=== PATIENT | male | born 1975 | race American Indian/Alaskan Native ===

== ENCOUNTER 2017-02-11 06:08 | Day surgery (SDC) | payer BC ==
[2017-01-28 10:47] VITALS: BMI 33.3
[2017-02-11] MEDS ORDERED: Bupivacaine-Epi 0.25%-1:200,000 PF Inj ONE (07:41)
[2017-02-11] MEDS ORDERED: Sodium Chloride 0.9% 40 ML IV ONE (07:41)
[2017-02-11] MEDS ORDERED: Midazolam 2 MG/2 ML VIAL ONE ×2 (07:54→08:52)
[2017-02-11] MEDS ORDERED: Propofol 10 mg/ml Inj (20 ML) ONE (07:54)
[2017-02-11] MEDS ORDERED: Rocuronium 10 mg/ml (5 ml) ONE (08:06)
[2017-02-11] MEDS ORDERED: Neostigmine Methylsulfate 3mg/3ml Syringe IV ONE (08:53)
[2017-02-11] MEDS ORDERED: Glycopyrrolate 0.2 mg/ml (2ml vial) ONE (08:53)
[2017-02-11] MEDS ORDERED: Lactated Ringer's 1,000 ML IV SCH (09:01)
[2017-02-11] MEDS ORDERED: Morphine 2 mg/ml ISec IVP PRN (09:01)
--- NOTE | 2017-02-11 09:57 | PCM.SURG1 ---
Surgeon's Initial Post Op Note - Surgeon's Notes Surgeon: Dr. Masoud Wheat Label Operator: Dr. Fitzgerald PGY-2, Dr. Gay PGY-1 Type of Anesthesia: General LMA Anesthesia Administered By: Dr. Dillon Pre-Operative Diagnosis: right ankle arthritis and synovitis Operative Findings: see dictation. 4-0 nylon Post-Operative Diagnosis: same as preop Operation Performed: right ankle arthroscopy Specimen/Specimens Removed: loose body (meniscoid body) Estimated Blood Loss: EBL {In ML}: 2 Blood Products Given: N/A Drains Used: No Drains Post-Op Condition: Good Date of Surgery/Procedure: 02/11/17 Time of Surgery/Procedure: 09:57
[2017-02-11] MEDS ORDERED: Oxycodone/Acetaminophen 5/325 mg Tab PO PRN ×2 (09:59)
[2017-02-11] MEDS ORDERED: Morphine 2 mg/ml ISec ONE (10:54)
[2017-02-11 11:48] VITALS: BP 137/90; PULSE 61; RESP 18; TEMP 97.5; O2SAT 97
--- NOTE | 2017-03-04 03:41 | OP ---
PROCEDURE DATE: 02/11/2017 SURGEON: Masoud Wheat MD ASSISTANTS: Dr. Fitzgerald, PGY2 and Dr. Gay, PGY1. PREOPERATIVE DIAGNOSIS: Chronic synovitis of the right ankle. POSTOPERATIVE DIAGNOSIS: Chronic synovitis of the right ankle. PROCEDURE: Diagnostic and therapeutic right ankle arthroscopy. INDICATIONS: The patient had a longstanding pain in his right ankle, but did not resolve with conservative therapies. He had been seen in the emergency room with a right ankle in 07/2016. He works a very physical job, and he works in his feet. He is a rather large male patient. He came to me after 2 weeks of ER treatment with pain in the right ankle and swelling. He had multiple studies including x-rays and CT scan done of the ankle, which showed no findings except for a small chip in the medial side of the tibial malleolus. He had not responded to physical therapies, Cam walking boots. He had had 3 most recently of disability, off from work and he was wearing 12 to 15 hours a day Swede-O lace-up ankle brace on the side and he reports no lasting improvement in the pain which tended to focus over the anterior and anterolateral aspect of the right ankle joint. TECHNIQUE: The patient was brought to the [facility] and placed supine on the operating table. He was inducted and then given general anesthetic with muscle relaxation. A bolster was then supplied and attached to the table to hold the right thigh in flexion and the right knee was allowed to bend approximately 45 to 60 degrees over the distal aspect of the table. The right leg was then prepped from the toes up to the proximal calf and draped in the usual sterile manner. A right thigh tourniquet had been applied before drape and prep and an Esmarch tourniquet was now applied to the right foot, ankle, and leg upto the knee, maintaining the elevation on the right leg for 3 minutes. At this time, the right thigh tourniquet was inflated to 325 mmHg, and the foot was positioned down with the heel on the table and the ankle in plantarflexion. The right ankle was then insufflated with 10 mL of 0.25% Marcaine mixed with an additional 10 mL of saline for irrigation, and following insufflation, the first portal was made on the anteromedial side of the ankle joint between the superficial femoral vein and tibialis anterior tendon. A 1.5 cm stab incision was placed through the skin, no significant undermining was performed. A blunt reflection with a curved mosquito down to the insufflated joint capsule and then a blunt trocar was utilized to appropriately place the portal into the joint. With the cannula in place, the trocar was replaced with the 2.7 Noel ankle scope and the arthroscopy began. The scope was brought through the anterior aspect of the joints towards the lateral side to eliminate from inside the vessels over the lateral portal site, and using the #15 blade, another 1.5 cm incision was placed between the lateral extensor digitorum tendon and the superficial lateral dorsal cutaneous nerve. With that incision placed carefully and bluntly dissected down to the joint capsule, the trocar and cannula were utilized for placing the lateral portal. Once the lateral portal was placed, the trocar was replaced and the joint was visualized. The visualization reveals significant synovitis over the lateral and anterolateral anterior shoulder area, the right ankle. The 3.5 full radius shaver was inserted and via oscillating mode, the synovitis was debrided from the lateral and anterolateral aspect of the joint. After sometime as the ankle was distracted and plantarflexed and accessed to the lateral gutter and lateral shoulder were not optimized, the scope was retracted slightly and the anterior aspect of the joint, tibial plafond, and talar dome was appreciated as well as the medical aspect medical shoulder of the joint, medial gutter and there was significantly less synovitis located in this area. Minimal debridement had been performed on this side. At this point in time, the 2.7 mm scope was re-introduced through the lateral portal and the shaver through the medial portal, and this allowed visualization of the more posterior aspects of the anterior gutter and anterior shoulder on the lateral side. It was noted at this time that right off the lateral shoulder, there appeared to be a fairly large meniscoid body that would float out and away from the lateral gutter shoulder margin about midway back towards the posterior aspect. A grasper was introduced from the medial side and the piece was able to be grasped and with gentle traction freed from its synovitis and transferred to the fibular margins and that piece of specimen was sent off to pathology. This was a classic meniscoid body emanating from the lateral shoulder and the fibular articular surface which was freely movable and may have been his primary source of sympomatic pain in that location. With the specimen sent to pathology, the ankle was evaluated one more time from lateral to medial side; now with the scope entered on the lateral portal, we were able to see back across the top of the talus and the midportion of the tibial plafond. There seemed to be some ridges located in the articular surface of the tibial plafond just over the lateral shoulder. A right angled blunt probe was introduced from the medial side and under direct visualization, it was noted that these 2 fissures, although appeared to be fairly firmly attached not undermined, but the probe did slip in between the fissure nodules. They appeared to encompass about 5 to 7 mm from lateral to midportion of the tibial plafond from the anterior and middle aspects parallel to each other. It was elected at this point in time that since there was no denuding of the cartilaginous surface and the meniscoid body was felt to be the prominent cause for his recurrent gait pain in the lateral shoulder that we would not do significant articular surface repair at this time. The scope products and the probes were all removed from the joint. The joint was then manipulated and compressed to allow for drainage of the and saline back out of the joint through the 2 portals. Once the sufficient compression had been performed, the 2 portals were closed with a single 4-0 nylon simple suture on each portal and then the wound was dressed with a Betadine-soaked Adaptic and dry sterile fluff dressing. The right leg was then placed in a posterior splint maintaining the ankle at 90 degrees for the first 5 to 6 days postoperatively. At this time, the right thigh tourniquet was released. The total tourniquet time was approximately 1 hour and 20 minutes and normal color and to all the digits of the right foot. The patient was subsequently aroused from his general anesthetic and successfully transferred from the operating table to the stretcher and transferred to the PACU where he was alert and oriented with vital signs stable and in good condition. Dressing was dry and intact. The patient was given no prescriptions for pain, as he had existing prescriptions of pain medication already at home from several different sources, and he was told to ambulate with crutches non-weightbearing on the right ankle for 72 hours, and he will follow up in 5 days in our office for splint removal and movement into a Cam walking boot and start physical therapy aggressively. Masoud Wheat DPM
== END 2017-02-11 12:30 | disposition home or self-care (01) ==
LOC: SDS 06:08
PROVIDERS: ATTEND Podiatrist
DX: M65.871 Other synovitis and tenosynovitis, right ankle and foot (principal); M19.071 Primary osteoarthritis, right ankle and foot
CPT/HCPCS: 29897; 88304; J0690; J2001; J2250; J2270; J2405; J2704; J2710; J3010; J7120 ×2

== ENCOUNTER 2017-10-24 12:16 | Emergency (ER) | payer BC, MEDICAID ==
[2017-10-24 12:17] VITALS: BMI 33.3
[2017-10-24 12:27] VITALS: RESP 18
[2017-10-24] MEDS ORDERED: Sodium Chloride 0.9% 1,000 ML IV STA (12:58)
[2017-10-24 13:22] LABS: BASO # 0.03 K/mm3 (0.0-2.0); BASO % 0.4 % (0.0-3.0); EOS # 0.1 (0.0-0.7); EOS % 1.1 % (1.5-5.0); GRAN # 5.2 (1.4-6.5); GRAN % 63.7 % (50.0-68.0); HEMOGLOBIN 14.7 g/dL (14.0-18.0); LYMPH # 2.2 (1.2-3.4); LYMPH % 27.3 % (22.0-35.0); MEAN CELL VOLUME 78.4 fl (80.0-105.0); MEAN CORPUSCULAR HEMOGLOBIN 26.7 pg (25.0-35.0); MEAN CORPUSCULAR HGB CONC 34.1 g/dl (31.0-37.0); MEAN PLATELET VOLUME 9.7 fl (7.0-11.0); MONO # 0.6 (0.1-0.6); MONO % 7.5 % (1.0-6.0); RBC 5.5 10^6/uL (3.5-6.1); RED CELL DISTRIBUTION WIDTH 14.3 % (11.5-14.5); WHITE BLOOD COUNT 8.2 10^3/ul (4.5-11.0)
[2017-10-24 13:26] LABS: ACETAMINOPHEN < 10.0 ug/ml (10.0-20.0); GFR AFRICAN-AMERICAN > 60; GFR NON-AFRICAN AMERICAN > 60; SALICYLATE < 1 mg/dL (2.0-20.0)
[2017-10-24 13:30] LABS: ALBUMIN 4.5 g/dL (3.0-4.8); ALT/SGPT 46 U/L (7-56); AST/SGOT 37 U/L (17-59); BLOOD UREA NITROGEN 14 mg/dL (7-21); CALCIUM 9.7 mg/dL (8.4-10.5)
[2017-10-24 13:31] LABS: ALB/GLOB RATIO 1.4 (1.1-1.8)
--- NOTE | 2017-10-24 14:01 | ED PDOC ---
Arrival/HPI - General Historian: Patient - History of Present Illness Time/Duration: Prior to Arrival Symptom Onset: Gradual Symptom Course: Improving <Sergio Baron - Last Filed: 10/24/17 15:35> <SelinBraulioArpitlucie - Last Filed: 10/24/17 22:23> - General Chief Complaint: Palpitations Time Seen by Provider: 10/24/17 12:25 - History of Present Illness Narrative History of Present Illness (Text): 10/24/17 13:58 Patient is a 42 M with a past medical history significant for chronic back pain and opioid abuse presenting with complaints of withdrawals which consist of decreased appetitie, anxiety, and nervousness which has been going on for two days now. Patient states this has been occurring [facility]. Admits to headache. Denies fevers, chills, cough, abdominal pain, nausea, vomiting, diarrhea, chest pain, shortness of breath. PMD:Dr. Castellon Pain Management doctor: Dr. Hossein Phillips Medications: originally took 30 mg oxycodone QID and 10 percocet BID daily for 6 years. Last medications taken today were clonidine and valium Surgical history: Gastric sleeve and b/l ankle surgery Social history: denies smoking, drinking, past opioid abuse (Sergio Baron) Past Medical History - Provider Review Nursing Documentation Reviewed: Yes - Infectious Disease Hx of Infectious Diseases: None - Cardiac Hx Cardiac Disorders: No - Pulmonary Hx Respiratory Disorders: No - Neurological Hx Neurological Disorder: No - HEENT Hx HEENT Disorder: No - Renal Hx Renal Disorder: No - Endocrine/Metabolic Hx Endocrine Disorders: No - Hematological/Oncological Hx Blood Transfusions: No - Integumentary Hx Dermatological Disorder: No - Musculoskeletal/Rheumatological Hx Musculoskeletal Disorders: Yes - Gastrointestinal Hx Gastrointestinal Disorders: Yes Other/Comment: gastric sleeve. GI bleeding problem - Genitourinary/Gynecological Hx Genitourinary Disorders: No - Psychiatric Hx Anxiety: Yes Hx Substance Use: No - Surgical History Other/Comment: gastric sleeve - Anesthesia Hx Anesthesia Reactions: No Hx Malignant Hyperthermia: No - Suicidal Assessment Feels Threatened In Home Enviroment: No <Sergio Baron - Last Filed: 10/24/17 15:35> Family/Social History - Physician Review Nursing Documentation Reviewed: Yes Family/Social History: Other (non-contributory) Smoking Status: Light Smoker < 10 Cigarettes Daily Hx Alcohol Use: No Hx Substance Use: No <Sergio Baron - Last Filed: 10/24/17 15:35> Allergies/Home Meds <Sergio Baron - Last Filed: 10/24/17 15:35> <Tone Smallwood - Last Filed: 10/24/17 22:23> Allergies/Adverse Reactions: Allergies No Known Allergies Allergy (Verified 10/24/17 12:28) Review of Systems - Review of Systems Constitutional: Fatigue. absent: Weight Change, Fevers Eyes: absent: Vision Changes ENT: absent: Hearing Changes Respiratory: absent: SOB, Cough Cardiovascular: absent: Chest Pain Gastrointestinal: absent: Diarrhea, Nausea, Vomiting Genitourinary Male: absent: Dysuria Musculoskeletal: Arthralgias, Back Pain Skin: absent: Rash Neurological: Headache. absent: Dizziness Endocrine: Normal Hemo/Lymphatic: Normal Psychiatric: Anxiety <Sergio Baron - Last Filed: 10/24/17 15:35> Physical Exam Vital Signs Reviewed: Yes Temperature: Afebrile Blood Pressure: Normal Pulse: Regular Respiratory Rate: Normal Appearance: Positive for: Well-Appearing, Non-Toxic, Comfortable Pain Distress: None Mental Status: Positive for: Alert and Oriented X 3 - Systems Exam Head: Present: Atraumatic, Normocephalic Pupils: Present: PERRL Extroacular Muscles: Present: EOMI Conjunctiva: Present: Normal Mouth: Present: Moist Mucous Membranes Neck: Present: Normal Range of Motion Respiratory/Chest: Present: Clear to Auscultation. No: Wheezes, Rhonchi Cardiovascular: Present: Regular Rate and Rhythm, Normal S1, S2 Abdomen: Present: Normal Bowel Sounds. No: Tenderness, Distention Upper Extremity: Present: Normal Inspection. No: Edema Lower Extremity: Present: Normal Inspection. No: Edema Neurological: Present: GCS=15, CN II-XII Intact, Speech Normal Skin: Present: Warm, Normal Color Psychiatric: Present: Alert, Oriented x 3, Normal Insight, Normal Concentration <Sergio Baron - Last Filed: 10/24/17 15:35> Vital Signs Temp Pulse Resp BP Pulse Ox 10/24/17 15:59 82 18 128/70 99 10/24/17 14:17 57 L 18 139/92 H 98 10/24/17 12:30 98.5 F 72 18 134/70 98 10/24/17 12:22 167 F H 18 136/82 98 Medical Decision Making Re-evaluation Time: 16:22 Reassessment Condition: Re-examined - Lab Interpretations I have reviewed the lab results: Yes Interpretation: All labs normal <Sergio Baron - Last Filed: 10/24/17 15:35> <Tone Smallwood - Last Filed: 10/24/17 22:23> ED Course and Treatment: 10/24/17 16:21 Tylenol given for headache, librium for symptoms Patient discharged with clonidine which was verified with patient's pharmacy Lab values revealed no abnormalities, Tox screen neg for drugs or alcohol ( Sergio Baron) - Lab Interpretations Lab Results: 10/24/17 13:00 10/24/17 13:00 Lab Results 10/24/17 14:30: Urine Color Yellow, Urine Appearance Sl cloudy, Urine pH 7.5, Ur Specific [place] 1.015, Urine Protein Trace H, Urine Glucose (UA) Negative, Urine Ketones 15 H, Urine Blood Negative, Urine Nitrate Negative, Urine Bilirubin Negative, Urine Urobilinogen 0.2, Ur Leukocyte Esterase Trace H, Urine RBC 0 - 2, Urine WBC 5 - 10, Ur Epithelial Cells 0 - 2, Amorphous Sediment Moderate, Urine Bacteria Many, Coarse Granular Casts Trace H, Urine Other Uyeast 10/24/17 13:40: Urine Opiates Screen Negative, Urine Methadone Screen Negative, Ur Barbiturates Screen Negative, Ur Phencyclidine Scrn Negative, Ur Amphetamines Screen Negative, U Benzodiazepines Scrn Positive, U Oth Cocaine Metabols Negative, U Cannabinoids Screen Negative 10/24/17 13:00: Alcohol, Quantitative < 10 10/24/17 13:00: Salicylates < 1 L, Acetaminophen < 10.0 L 10/24/17 13:00: Sodium 144, Potassium 4.2, Chloride 106, Carbon Dioxide 24, Anion Gap 17, BUN 14, Creatinine 1.1, Est GFR ( Amer) > 60, Est GFR (Non- Af Amer) > 60, Random Glucose 88, Calcium 9.7, Magnesium 2.3 H, Total Bilirubin 0.5, AST 37, ALT 46, Alkaline Phosphatase 82, Total Protein 7.8, Albumin 4.5, Globulin 3.3, Albumin/Globulin Ratio 1.4 10/24/17 13:00: WBC 8.2 D, RBC 5.50, Hgb 14.7, Hct 43.1, MCV 78.4 L, MCH 26.7, MCHC 34.1, RDW 14.3, Plt Count 347, MPV 9.7, Gran % 63.7, Lymph % (Auto) 27.3, Davis % (Auto) 7.5 H, Eos % (Auto) 1.1 L, Baso % (Auto) 0.4, Gran # 5.20, Lymph # (Auto) 2.2, Davis # (Auto) 0.6, Eos # (Auto) 0.1, Baso # (Auto) 0.03 - Medication Orders Current Medication Orders: Discontinued Medications Acetaminophen (Tylenol 325mg Tab) 650 mg PO STAT STA Stop: 10/24/17 13:58 Last Admin: 10/24/17 14:20 Dose: 650 mg Chlordiazepoxide (Librium) 50 mg PO STAT STA PRN Reason: Protocol Stop: 10/24/17 14:20 Last Admin: 10/24/17 14:25 Dose: 50 mg Famotidine (Pepcid) 20 mg IVP STAT STA Stop: 10/24/17 13:21 Last Admin: 10/24/17 13:33 Dose: 20 mg IVP Administration Document 10/24/17 13:33 EWO (Rec: 10/24/17 13:33 [facility] [id number]) Charges for Administration # of IVP Administrations 1 Sodium Chloride (Sodium Chloride 0.9%) 1,000 mls @ 1,000 mls/hr IV .Q1H STA Stop: 10/24/17 13:57 Last Admin: 10/24/17 13:10 Dose: 1,000 mls/hr eMAR Start Stop Document 10/24/17 13:10 EWO (Rec: 10/24/17 13:10 [facility] [id number]) Intravenous Solution Start Date 10/24/17 Start Time 13:10 End Date 10/24/17 End time 14:10 Total Infusion Time 60 - PA / [employer] / Resident Statement / has reviewed & agrees with the documentation as recorded. <Tone Smallwood - Last Filed: 10/24/17 22:23> Disposition/Present on Arrival - Present on Arrival Any Indicators Present on Arrival: No History of DVT/PE: No History of Uncontrolled Diabetes: No Urinary Catheter: No History of Decub. Ulcer: No History Surgical Site Infection Following: None - Disposition Have Diagnosis and Disposition been Completed?: Yes Disposition Time: 15:35 Patient Plan: Discharge <Sergio Baron - Last Filed: 10/24/17 15:35> <Tone Smallwood - Last Filed: 10/24/17 22:23> - Disposition Diagnosis: Benzodiazepine withdrawal without complication, Loss of appetite, Opioid withdrawal Disposition: HOME/ ROUTINE Condition: GOOD Additional Instructions: Mr. Medina, thank you for letting us take care of you today. Your provider was Dr. Smallwood. The emergency medical care you received today was directed at your acute symptoms. If you were prescribed any medication, please fill it and take as directed. It may take several days for your symptoms to resolve. Return to the Emergency Department if your symptoms worsen, do not improve, or if you have any other problems. Please contact your doctor or call one of the physicians/clinics you have been referred to that are listed on the Patient Visit Information form that is included in your discharge packet. Bring any paperwork you were given at discharge with you along with any medications you are taking to your follow up visit. Our treatment cannot replace ongoing medical care by a primary care provider (PCP) outside of the emergency department. Thank you for allowing the [facility] team to be part of your care today. If you had an X-Ray or CT scan: A Radiologist will review the ED reading if any change in treatment is needed we will contact you. If you had a blood, urine, or wound culture: It will take several days for the results, if any change in treatment is needed we will contact you. If you had an STI test: It will take 48 hours for the results. Please call after 1 week if you have not heard back. Prescriptions: chlordiazePOXIDE [Chlordiazepoxide HCl] 25 mg PO Q6 PRN #24 cap PRN Reason: Anxiety cloNIDine [Catapres] 0.1 mg PO BID #60 tab Forms: [employer] ([place])
[2017-10-24 14:43] LABS: PH,URINE 7.5 (4.7-8.0); URINE APPEARANCE SL CLOUDY (CLEAR); URINE BILIRUBIN NEGATIVE (NEGATIVE); URINE BLOOD NEGATIVE (NEGATIVE); URINE COLOR YELLOW (YELLOW); URINE GLUCOSE (UA) NEGATIVE (NEGATIVE); URINE LEUKOCYTE ESTERASE TRACE Leu/uL (NEGATIVE); URINE PROTEIN TRACE mg/dL (<30 mg/dL); URINE UROBILINOGEN 0.2 E.U./dL (<1 E.U./dL)
[2017-10-24 14:47] LABS: URINE EPITHELIAL CELLS 0 - 2 /hpf (0-5); URINE RBC 0 - 2 /hpf (0-2)
[2017-10-24 14:48] LABS: URINE BACTERIA MANY (NEG); URINE COARSE GRANULAR CAST TRACE /hpf (0-2)
[2017-10-24 14:49] LABS: URINE AMORPHOUS SEDIMENT MODERATE
[2017-10-24 15:01] LABS: OPIATES, UR NEGATIVE (NEGATIVE)
[2017-10-24 15:04] LABS: BARBITURATES, UR NEGATIVE (NEGATIVE); BENZODIAZEPINES, UR POSITIVE (NEGATIVE); PHENCYCLIDINE, UR NEGATIVE (NEGATIVE)
[2017-10-24 15:31] VITALS: TEMP 98.5
[2017-10-24 16:00] VITALS: BP 128/70; PULSE 82; O2SAT 99
--- NOTE | 2017-10-25 12:59 | CARD ---
APPROVED REPORT EKG Measurement Heart [id number] <Conclusion> Normal sinus rhythm Normal ECG
== END 2017-10-24 15:59 | disposition home or self-care (01) ==
LOC: ED 12:16
DX: F13.239 Sedative, hypnotic or anxiolytic dependence with withdrawal, unspecified (principal); R63.0 Anorexia; F11.23 Opioid dependence with withdrawal
CPT/HCPCS: 80053; 80320; 80324; 80329; 80345; 80346; 80349; 80353; 80358; 80361; 81001; 83735; 83992; 85025; 87086; 87206; 93005; 96361; 96374; 99283; J7040

== ENCOUNTER 2017-11-05 18:46 | Emergency (ER) | payer SELFPAY ==
[2017-11-05 18:49] VITALS: BMI 34.0
[2017-11-05 19:00] VITALS: TEMP 98.3
--- NOTE | 2017-11-05 20:12 | ED PDOC ---
Arrival/HPI - General Chief Complaint: Medical Clearance Time Seen by Provider: 11/05/17 20:05 Historian: Patient - History of Present Illness Narrative History of Present Illness (Text): 11/05/17 20:09 Pt is a 42 yr old with h/o substance abuse and a previous slip and fall incident at work who presents today for medical clearance of the left hip. Pt states he never received clearance for his left hip last visit to the ED and currently has no complaints of the left hip but requires a letter of clearance for work. Denies recent trauma, gait changes, change in motor or sensation of extremities. Time/Duration: Prior to Arrival Symptom Onset: Other Symptom Course: Resolved Quality: Unable to Describe Severity Level: 1 Context: Work Past Medical History - Provider Review Nursing Documentation Reviewed: Yes - Travel History Have you recently traveled outside [place] w/in the past 3 mons?: No - Infectious Disease Hx of Infectious Diseases: None - Cardiac Hx Cardiac Disorders: No - Pulmonary Hx Respiratory Disorders: No - Neurological Hx Neurological Disorder: No - HEENT Hx HEENT Disorder: No - Renal Hx Renal Disorder: No - Endocrine/Metabolic Hx Endocrine Disorders: No - Hematological/Oncological Hx Blood Transfusions: No - Integumentary Hx Dermatological Disorder: No - Musculoskeletal/Rheumatological Hx Musculoskeletal Disorders: Yes - Gastrointestinal Hx Gastrointestinal Disorders: Yes Other/Comment: gastric sleeve. GI bleeding problem - Genitourinary/Gynecological Hx Genitourinary Disorders: No - Psychiatric Hx Anxiety: Yes Hx Substance Use: No - Surgical History Other/Comment: gastric sleeve - Anesthesia Hx Anesthesia Reactions: No Hx Malignant Hyperthermia: No - Suicidal Assessment Feels Threatened In Home Enviroment: No Family/Social History - Physician Review Nursing Documentation Reviewed: Yes Family/Social History: Unknown Family HX Smoking Status: Light Smoker < 10 Cigarettes Daily Hx Alcohol Use: No Hx Substance Use: No Allergies/Home Meds Allergies/Adverse Reactions: Allergies No Known Allergies Allergy (Verified 10/24/17 12:28) Review of Systems - Review of Systems Constitutional: Normal Eyes: Normal ENT: Normal Respiratory: Normal Cardiovascular: Normal Gastrointestinal: Normal Genitourinary Male: Normal Musculoskeletal: Normal Skin: Normal Neurological: Normal Endocrine: Normal Hemo/Lymphatic: Normal Psychiatric: Normal Physical Exam Vital Signs Reviewed: Yes Vital Signs Temp Pulse Resp BP Pulse Ox 11/05/17 18:59 98.3 F 83 18 144/92 H 97 Temperature: Afebrile Blood Pressure: Normal Pulse: Regular Respiratory Rate: Normal Appearance: Positive for: Well-Appearing, Non-Toxic, Comfortable Pain Distress: None Mental Status: Positive for: Alert and Oriented X 3 - Systems Exam Head: Present: Atraumatic, Normocephalic Neck: Present: Normal Range of Motion Respiratory/Chest: Present: Clear to Auscultation, Good Air Exchange. No: Respiratory Distress, Accessory Muscle Use Cardiovascular: Present: Regular Rate and Rhythm, Normal S1, S2. No: Murmurs Abdomen: No: Tenderness, Distention, Peritoneal Signs Back: Present: Normal Inspection Upper Extremity: Present: Normal Inspection, Normal ROM, NORMAL PULSES, Neurovascularly Intact, Capillary Refill < 2s. No: Cyanosis, Edema Lower Extremity: Present: Normal Inspection, NORMAL PULSES, Normal ROM, Capillary Refill < 2 s. No: Edema, CALF TENDERNESS Neurological: Present: GCS=15, CN II-XII Intact, Speech Normal, Motor Func Grossly Intact, Normal Sensory Function, Norm Deep Tendon Reflexes, Gait Normal , Normal 2Pt Descrimination Skin: Present: Warm, Dry, Normal Color. No: Rashes Psychiatric: Present: Alert, Oriented x 3, Normal Insight, Normal Concentration Medical Decision Making ED Course and Treatment: 11/05/17 20:16 Impression Pt is a 42 yr old with h/o substance abuse and a previous slip and fall incident at work who presents today for medical clearance of the left hip. One exam, Bilateral full active and passive ROM of the hip joint, SILT and motor function 5/5 full No other findings on exam Plan Assess and dispo with work clearance 11/05/17 20:55 Pt received discharge paper that indicates clearance to work Disposition/Present on Arrival - Present on Arrival Any Indicators Present on Arrival: Yes History of DVT/PE: No History of Uncontrolled Diabetes: No Urinary Catheter: No History of Decub. Ulcer: No History Surgical Site Infection Following: None - Disposition Have Diagnosis and Disposition been Completed?: Yes Diagnosis: Return to work exam, Examination and observation following work accident Disposition: HOME/ ROUTINE Disposition Time: 20:22 Patient Plan: Discharge Patient Problems: Current Active Problems Problem Status Onset Return to work exam Acute Examination and observation following work accident Acute Condition: STABLE Additional Instructions: Ponce Medina has been assessed for a previous left hip injury that occurred at his work place October 24, 2017. The left hip has good range of motion and motor strength with no deficits and gait is normal. This patient is clear to continue working. Referrals: PCP,NO [Primary Care Provider] - Follow up with primary Forms: [employer] ([place]ian), WORK NOTE
[2017-11-05 23:08] VITALS: BP 138/88; PULSE 80; RESP 16; O2SAT 99
== END 2017-11-05 20:30 | disposition home or self-care (01) ==
LOC: ED 18:46
DX: Z04.2 Encounter for examination and observation following work accident (principal)

== ENCOUNTER 2017-11-20 11:32 | Emergency (ER) | payer OTHER ==
--- NOTE | 2017-11-20 11:48 | ED PDOC ---
Arrival/HPI - General Time Seen by Provider: 11/20/17 11:43 Historian: Patient - History of Present Illness Narrative History of Present Illness (Text): 11/20/17 11:44 42 y/o male, pmh including chronic lower back pain, nkda, c/o lower back pain and feeling depress/anxiety. Pt. stated that he has lower back pain for years, xray was negative couple months ago, no new injury or fall, pain and characteristic of pain have not changed, and seeing pain management which been giving him percocet but he didn't take it today. Pt. also stated that he has chronic anxiety and depression, would like to be evaluated as well, no facial twitching, no tremors, no palpitation, no nausea or vomiting, no URI symptoms, no numbness or tingling, no homocidal or suicidal ideation, no auditory or visual hallucination, no rash, no other medical or psychological complaints. Past Medical History - Provider Review Nursing Documentation Reviewed: Yes - Infectious Disease Hx of Infectious Diseases: None - Cardiac Hx Cardiac Disorders: No - Pulmonary Hx Respiratory Disorders: No - Neurological Hx Neurological Disorder: No - HEENT Hx HEENT Disorder: No - Renal Hx Renal Disorder: No - Endocrine/Metabolic Hx Endocrine Disorders: No - Hematological/Oncological Hx Blood Transfusions: No - Integumentary Hx Dermatological Disorder: No - Musculoskeletal/Rheumatological Hx Musculoskeletal Disorders: Yes - Gastrointestinal Hx Gastrointestinal Disorders: Yes Other/Comment: gastric sleeve. GI bleeding problem - Genitourinary/Gynecological Hx Genitourinary Disorders: No - Psychiatric Hx Anxiety: Yes Hx Substance Use: No - Surgical History Other/Comment: gastric sleeve - Anesthesia Hx Anesthesia Reactions: No Hx Malignant Hyperthermia: No - Suicidal Assessment Feels Threatened In Home Enviroment: No Family/Social History - Physician Review Nursing Documentation Reviewed: Yes Family/Social History: Unknown Family HX Smoking Status: Light Smoker < 10 Cigarettes Daily Hx Alcohol Use: No Hx Substance Use: No Allergies/Home Meds Allergies/Adverse Reactions: Allergies No Known Allergies Allergy (Verified 10/24/17 12:28) Review of Systems - Review of Systems Constitutional: absent: Fatigue, Fevers Eyes: absent: Vision Changes ENT: absent: Hearing Changes Respiratory: absent: SOB, Cough Cardiovascular: absent: Chest Pain Gastrointestinal: absent: Abdominal Pain, Nausea, Vomiting Musculoskeletal: Back Pain. absent: Arthralgias, Neck Pain, Joint Swelling, Myalgias Skin: absent: Rash, Pruritis Psychiatric: Anxiety, Depression. absent: Suicidal Ideation Physical Exam Vital Signs Reviewed: Yes Vital Signs Temp Pulse Resp BP Pulse Ox 11/20/17 11:55 97.6 F 64 17 133/81 98 Temperature: Afebrile Blood Pressure: Normal Pulse: Regular Respiratory Rate: Normal Appearance: Positive for: Well-Appearing, Non-Toxic, Comfortable Pain Distress: None Mental Status: Positive for: Alert and Oriented X 3 - Systems Exam Head: Present: Atraumatic, Normocephalic Pupils: Present: PERRL. No: Pinpoint Extroacular Muscles: Present: EOMI. No: Entrapment Conjunctiva: Present: Normal. No: Icteric Ears: Present: NORMAL TM, Normal Canal Mouth: Present: Moist Mucous Membranes Neck: Present: Normal Range of Motion Respiratory/Chest: Present: Clear to Auscultation, Good Air Exchange. No: Respiratory Distress, Accessory Muscle Use Cardiovascular: Present: Regular Rate and Rhythm, Normal S1, S2. No: Murmurs Abdomen: No: Tenderness, Distention, Peritoneal Signs Back: Present: Normal Inspection, Other (LS spine: no midline tenderness or step off, no saddling gait, FROM without limitation, sensation intact, motor 5/ 5. ). No: CVA Tenderness, Midline Tenderness, Paraspinal Tenderness, Pain with Leg Raise, Decubitus Ulcer Upper Extremity: Present: Normal Inspection, NORMAL PULSES, Neurovascularly Intact, Capillary Refill < 2s. No: Cyanosis, Edema, Deformity Lower Extremity: Present: Normal Inspection, Normal ROM, Neurovascularly Intact , Capillary Refill < 2 s. No: Edema, Tenderness, Swelling, Deformity Neurological: Present: GCS=15, CN II-XII Intact, Speech Normal, Motor Func Grossly Intact, Gait Normal, Memory Normal, Other (no facial twitching, no tremors, no signs of withdrawals) Skin: Present: Warm, Dry, Normal Color. No: Rashes Psychiatric: Present: Alert, Oriented x 3, Normal Insight, Normal Concentration , Normal Affect, Normal Mood, Anxious, Depressed Mood. No: Agitated, Suicidal Ideation, Homicidal Ideation, Hallucinations, Intoxicated, Lethargic Medical Decision Making ED Course and Treatment: 11/20/17 11:48 -labs/ua/uds -Toradol IM/valium -PES paged -Observe and reassess 11/20/17 13:40 -Pt. feels much better now, asymptomatic -Pt. refused to wait for remaining labs and want the labs to be cancelled, request to be discharged, stated that he is not withdrawing with no homicidal/ suicidal ideation, no auditory or visual hallucinations. Pt. refused psychiatric evaluation. -Discharge home with motrin, flexeril, bed rest, follow up with your own pmd and pain management within 2 days, return to the ER for any new or worsening signs or symptoms. - Lab Interpretations Lab Results: 11/20/17 12:44 Lab Results 11/20/17 13:23: Urine Color Yellow, Urine Appearance Sl cloudy, Urine pH 6.0, Ur Specific [place] >= 1.030, Urine Protein Trace H, Urine Glucose (UA) Negative , Urine Ketones Trace H, Urine Blood Negative, Urine Nitrate Negative, Urine Bilirubin Small H, Urine Urobilinogen 0.2, Ur Leukocyte Esterase Negative, Urine RBC Pending, Urine WBC Pending 11/20/17 12:44: WBC 7.8, RBC 5.74, Hgb 15.2, Hct 45.0, MCV 78.4 L, MCH 26.5, MCHC 33.8, RDW 14.5, Plt Count 306, MPV 9.5, Gran % 66.4, Lymph % (Auto) 26.3, [place] % (Auto) 6.4 H, Eos % (Auto) 0.6 L, Baso % (Auto) 0.3, Gran # 5.19, Lymph # (Auto) 2.1, [place] # (Auto) 0.5, Eos # (Auto) 0.1, Baso # (Auto) 0.02 - Medication Orders Current Medication Orders: Discontinued Medications Diazepam (Valium) 5 mg PO ONCE ONE PRN Reason: Protocol Stop: 11/20/17 12:07 Last Admin: 11/20/17 13:02 Dose: 5 mg Ketorolac Tromethamine (Toradol) 60 mg IM STAT STA Stop: 11/20/17 12:07 Last Admin: 11/20/17 13:03 Dose: 60 mg MAR Pain Assessment Document 11/20/17 13:03 [facility] (Rec: 11/20/17 13:03 [facility] [id number]) Pain Reassessment Is this a pain reassessment? No Sleep Is patient sleeping during reassessment? No Presence of Pain Presence of Pain Yes Pain Scale Used Pain Scale Used Numeric Location Left, Right or Bilateral Bilateral Upper or Lower Lower Pain Location Body Site Back Description Intensity of Pain at present 10 IM Administration Charges Document 11/20/17 13:03 [facility] (Rec: 11/20/17 13:03 [facility] [id number]) Charges for Administration # of IM Administrations 1 - PA / ONLINE MARKETING COORDINATOR / Resident Statement MD/DO has reviewed & agrees with the documentation as recorded. Disposition/Present on Arrival - Present on Arrival Any Indicators Present on Arrival: No History of DVT/PE: No History of Uncontrolled Diabetes: No Urinary Catheter: No History of Decub. Ulcer: No History Surgical Site Infection Following: None - Disposition Have Diagnosis and Disposition been Completed?: Yes Diagnosis: Low back pain, Non-compliance Disposition: HOME/ ROUTINE Disposition Time: 13:42 Patient Plan: Discharge Condition: IMPROVED Additional Instructions: -Discharge home with motrin, flexeril, bed rest, follow up with your own pmd and pain management within 2 days, return to the ER for any new or worsening signs or symptoms. Prescriptions: Cyclobenzaprine [Cyclobenzaprine HCl] 10 mg PO TID PRN #21 tab PRN Reason: Other Ibuprofen [Motrin Tab] 600 mg PO QID PRN #30 tab PRN Reason: Other Referrals: Ángel Trevino MD [Staff Provider] - Follow up with primary [facility] [place] [Outside] - Follow up with primary [facility] [Outside] - Follow up with primary Forms: WORK NOTE
[2017-11-20 12:00] VITALS: BMI 26.8
[2017-11-20 12:51] LABS: BASO # 0.02 K/mm3 (0.0-2.0); BASO % 0.3 % (0.0-3.0); EOS # 0.1 (0.0-0.7); EOS % 0.6 % (1.5-5.0); GRAN # 5.19 (1.4-6.5); GRAN % 66.4 % (50.0-68.0); HEMOGLOBIN 15.2 g/dL (14.0-18.0); LYMPH # 2.1 (1.2-3.4); LYMPH % 26.3 % (22.0-35.0); MEAN CELL VOLUME 78.4 fl (80.0-105.0); MEAN CORPUSCULAR HEMOGLOBIN 26.5 pg (25.0-35.0); MEAN CORPUSCULAR HGB CONC 33.8 g/dl (31.0-37.0); MEAN PLATELET VOLUME 9.5 fl (7.0-11.0); MONO # 0.5 (0.1-0.6); MONO % 6.4 % (1.0-6.0); RBC 5.74 10^6/uL (3.5-6.1); RED CELL DISTRIBUTION WIDTH 14.5 % (11.5-14.5); WHITE BLOOD COUNT 7.8 10^3/ul (4.5-11.0)
[2017-11-20 13:29] LABS: URINE BILIRUBIN SMALL (NEGATIVE); URINE BLOOD NEGATIVE (NEGATIVE); URINE GLUCOSE (UA) NEGATIVE (NEGATIVE); URINE LEUKOCYTE ESTERASE NEGATIVE Leu/uL (NEGATIVE); URINE PROTEIN TRACE mg/dL (<30 mg/dL); URINE UROBILINOGEN 0.2 E.U./dL (<1 E.U./dL)
[2017-11-20 13:31] LABS: URINE APPEARANCE SL CLOUDY (CLEAR); URINE COLOR YELLOW (YELLOW)
[2017-11-20 13:39] LABS: URINE RBC NEGATIVE /hpf (0-2); URINE WBC 0 - 2 /hpf (0-6)
[2017-11-20 14:02] VITALS: BP 126/76; PULSE 70; RESP 18; TEMP 98; O2SAT 99
[2017-11-20 14:15] LABS: BLOOD UREA NITROGEN 13 mg/dL (7-21); GFR AFRICAN-AMERICAN > 60; GFR NON-AFRICAN AMERICAN > 60
[2017-11-20 14:16] LABS: ALB/GLOB RATIO 1.2 (1.1-1.8); ALBUMIN 4.1 g/dL (3.0-4.8); ALT/SGPT 48 U/L (7-56); AST/SGOT 29 U/L (17-59); CALCIUM 9.3 mg/dL (8.4-10.5)
== END 2017-11-20 14:09 | disposition home or self-care (01) ==
LOC: ED 11:32
DX: M54.5 Low back pain (principal); Z91.19 Patient's noncompliance with other medical treatment and regimen; F17.210 Nicotine dependence, cigarettes, uncomplicated
CPT/HCPCS: 80053; 81001; 82550; 83735; 85025; 96372; 99281; J1885

== ENCOUNTER 2018-02-10 14:22 | Emergency (ER) | payer MEDICAID, OTHER ==
[2018-02-10 14:57] VITALS: BMI 31.4
[2018-02-10] MEDS ORDERED: Sodium Chloride 0.9% 1,000 ML IV STA (15:30)
--- NOTE | 2018-02-10 15:42 | ED PDOC ---
Arrival/HPI - General Chief Complaint: Abdominal Pain Time Seen by Provider: 02/10/18 15:29 Historian: Patient - History of Present Illness Narrative History of Present Illness (Text): 43y/o M with h/o HTN, HCH, s/p gastric bypass surgery(2016), comes to ED with complaints of headache ongoing for about 1 week and abdominal discomfort for the past 24 hours. He states the headache was gradual in onset and has been intermittent in nature. He reports the headache improving after sleep and denies any associated photophobia, phonophobia, weakness, numbness, or dizziness. Patient states his abdominal pain is a burning sensation and reports bloating. He states his bowel movements have been normal in caliber and denies any bloody stools. He denies any fever, chills, nausea, vomiting, diarrhea, constipation, dysuria, hematuria or frequency. Patient also denies any recent travels or known sick contacts. PMD: Dr. Kim Time/Duration: 24 hours Symptom Onset: Gradual Symptom Course: Worsening Quality: Cramping, Gas Like Severity Level: Moderate Activities at Onset: Rest Context: Home Past Medical History - Provider Review Nursing Documentation Reviewed: Yes - Travel History Have you recently traveled outside [place] w/in the past 3 mons?: No - Infectious Disease Hx of Infectious Diseases: None - Cardiac Hx Cardiac Disorders: Yes Hx Hypertension: Yes - Pulmonary Hx Respiratory Disorders: No - Neurological Hx Neurological Disorder: No - HEENT Hx HEENT Disorder: No - Renal Hx Renal Disorder: No - Endocrine/Metabolic Hx Endocrine Disorders: No - Hematological/Oncological Hx Blood Transfusions: No - Integumentary Hx Dermatological Disorder: No - Musculoskeletal/Rheumatological Hx Musculoskeletal Disorders: Yes - Gastrointestinal Hx Gastrointestinal Disorders: Yes Other/Comment: gastric sleeve. GI bleeding problem - Genitourinary/Gynecological Hx Genitourinary Disorders: No - Psychiatric Hx Anxiety: Yes Hx Substance Use: No - Surgical History Other/Comment: gastric sleeve - Anesthesia Hx Anesthesia: Yes Hx Anesthesia Reactions: No Hx Malignant Hyperthermia: No - Suicidal Assessment Feels Threatened In Home Enviroment: No Family/Social History - Physician Review Nursing Documentation Reviewed: Yes Family/Social History: No Known Family HX Smoking Status: Light Smoker < 10 Cigarettes Daily Hx Alcohol Use: No Hx Substance Use: No Allergies/Home Meds Allergies/Adverse Reactions: Allergies No Known Allergies Allergy (Verified 02/10/18 15:14) Review of Systems - Physician Review All systems were reviewed & negative as marked: Yes - Review of Systems Constitutional: absent: Fevers Eyes: absent: Vision Changes, Photophobia ENT: absent: Hearing Changes Respiratory: absent: SOB, Cough Cardiovascular: absent: Chest Pain Gastrointestinal: Abdominal Pain. absent: Stool Changes, Constipation, Diarrhea , Nausea, Vomiting Genitourinary Male: absent: Dysuria, Frequency, Hematuria Musculoskeletal: Back Pain (chronic) Skin: absent: Rash Neurological: Headache. absent: Dizziness, Focal Weakness Physical Exam Temperature: Afebrile Blood Pressure: Normal Pulse: Regular Respiratory Rate: Normal Appearance: Positive for: Well-Appearing, Non-Toxic, Comfortable Pain Distress: None Mental Status: Positive for: Alert and Oriented X 3 - Systems Exam Head: Present: Atraumatic, Normocephalic Pupils: Present: PERRL Extroacular Muscles: Present: EOMI Conjunctiva: Present: Normal Mouth: Present: Moist Mucous Membranes Neck: Present: Normal Range of Motion Respiratory/Chest: Present: Clear to Auscultation, Good Air Exchange. No: Respiratory Distress, Accessory Muscle Use Cardiovascular: Present: Regular Rate and Rhythm, Normal S1, S2. No: Murmurs Abdomen: Present: Tenderness (tenderness to periumbilical region and left lower quadrant). No: Distention, Peritoneal Signs Back: Present: Normal Inspection. No: CVA Tenderness Upper Extremity: Present: Normal Inspection. No: Cyanosis, Edema Lower Extremity: Present: Normal Inspection. No: Edema Neurological: Present: GCS=15, CN II-XII Intact, Speech Normal Skin: Present: Warm, Dry, Normal Color. No: Rashes Psychiatric: Present: Alert, Oriented x 3, Normal Insight, Normal Concentration Medical Decision Making ED Course and Treatment: Impression: 43yo male, hx hypertension, hypercholesterolemia, gastric bypass, comes to Emergency room with complaints of abdominal pain and headache Differential Diagnosis included but are not limited to: Tension headache Pancreatitis Diverticulitis Colitis Gastritis Plan: -- Labs -- CT Abdomen/Pelvis w/ IV Contrast -- Toradol --Reglan -- IV Fluids -- Reassess and disposition Prior Visits: Notes and results from previous visits were reviewed. Patient was last seen in this Emergency room on 11/20/17 for back pain, anxiety and dizziness and was discharged home. Progress Notes: 02/10/18 16:43 Labs reviewed with no leukocytosis noted with benign chemistries. Pending CT a/p - Lab Interpretations Lab Results: 02/10/18 16:05 02/10/18 16:05 Lab Results 02/10/18 16:05: Sodium 139, Potassium 4.7, Chloride 105, Carbon Dioxide 27, Anion Gap 13, BUN 18, Creatinine 1.2, Est GFR ( Amer) > 60, Est GFR (Non- Af Amer) > 60, Random Glucose 92, Calcium 9.7, Total Bilirubin 1.0, AST 29, ALT 33, Alkaline Phosphatase 76, Troponin I < 0.01, Total Protein 7.7, Albumin 4.4, Globulin 3.3, Albumin/Globulin Ratio 1.3, Lipase 68 02/10/18 16:05: Urine Color Light yellow, Urine Appearance Clear, Urine pH 7.0, Ur Specific [place] 1.020, Urine Protein Negative, Urine Glucose (UA) Negative, Urine Ketones Negative, Urine Blood Negative, Urine Nitrate Negative, Urine Bilirubin Negative, Urine Urobilinogen 1.0 H, Ur Leukocyte Esterase Negative 02/10/18 16:05: WBC 7.3, RBC 6.19 H, Hgb 16.1, Hct 48.1, MCV 77.7 L, MCH 26.0, MCHC 33.5, RDW 14.2, Plt Count 308, MPV 9.4, Gran % 61.7, Lymph % (Auto) 27.7, [place] % (Auto) 8.1 H, Eos % (Auto) 2.2, Baso % (Auto) 0.3, Gran # 4.48, Lymph # ( Auto) 2.0, [place] # (Auto) 0.6, Eos # (Auto) 0.2, Baso # (Auto) 0.02, ESR 3 - RAD Interpretation Narrative RAD Interpretations (Text): 02/10/18 18:30 CT A/P IMPRESSION: Mild constipation. Enlarged prostate gland. Recommend correlation with PSA. Postsurgical changes of the stomach. Additional findings as above. Radiology Orders: 02/10/18 15:30 ABDOMEN & PELVIS [ABD & PELVIS IV CONTRAST ONLY] [CT] Stat - Medication Orders Current Medication Orders: Discontinued Medications Sodium Chloride (Sodium Chloride 0.9%) 1,000 mls @ 999 mls/hr IV .Q1H1M STA Stop: 02/10/18 16:30 Last Admin: 02/10/18 16:05 Dose: 999 mls/hr eMAR Start Stop Document 02/10/18 16:05 [facility] (Rec: 02/10/18 16:[address] [id number] Intravenous Solution Start Date 02/10/18 Start Time 16:06 Ketorolac Tromethamine (Toradol) 30 mg IVP STAT STA Stop: 02/10/18 15:31 Last Admin: 02/10/18 16:06 Dose: 30 mg MAR Pain Assessment Document 02/10/18 16:06 [facility] (Rec: 02/10/18 16:[address] [id number] Pain Reassessment Is this a pain reassessment? No Sleep Is patient sleeping during reassessment? No Presence of Pain Presence of Pain Yes IVP Administration Document 02/10/18 16:06 [facility] (Rec: 02/10/18 16:[address] [id number]) Charges for Administration # of IVP Administrations 1 Disposition/Present on Arrival - Present on Arrival Any Indicators Present on Arrival: No History of DVT/PE: No History of Uncontrolled Diabetes: No Urinary Catheter: No History of Decub. Ulcer: No History Surgical Site Infection Following: None - Disposition Have Diagnosis and Disposition been Completed?: Yes Diagnosis: Constipation, Gastritis Disposition: HOME/ ROUTINE Disposition Time: 19:05 Patient Plan: Discharge Patient Problems: Current Active Problems Problem Status Onset Constipation Acute Gastritis Acute Condition: IMPROVED Discharge Instructions (ExitCare): Constipation, Adult (DC), Gastritis (DC) Referrals: Sherri Maharaj MD [Medical Doctor] - Follow up with primary [facility] [place] - Follow up with primary Forms: [email or web address] (E[place]ian)
[2018-02-10 16:22] LABS: BASO # 0.02 K/mm3 (0.0-2.0); BASO % 0.3 % (0.0-3.0); EOS # 0.2 (0.0-0.7); EOS % 2.2 % (1.5-5.0); GRAN # 4.48 (1.4-6.5); GRAN % 61.7 % (50.0-68.0); HEMOGLOBIN 16.1 g/dL (14.0-18.0); LYMPH % 27.7 % (22.0-35.0); MEAN CELL VOLUME 77.7 fl (80.0-105.0); MEAN CORPUSCULAR HGB CONC 33.5 g/dl (31.0-37.0); MEAN PLATELET VOLUME 9.4 fl (7.0-11.0); MONO # 0.6 (0.1-0.6); MONO % 8.1 % (1.0-6.0); RBC 6.19 10^6/uL (3.5-6.1); RED CELL DISTRIBUTION WIDTH 14.2 % (11.5-14.5); WHITE BLOOD COUNT 7.3 10^3/ul (4.5-11.0)
[2018-02-10 16:27] LABS: URINE APPEARANCE CLEAR (CLEAR); URINE BILIRUBIN NEGATIVE (NEGATIVE); URINE BLOOD NEGATIVE (NEGATIVE); URINE COLOR LIGHT YELLOW (YELLOW); URINE GLUCOSE (UA) NEGATIVE (NEGATIVE); URINE LEUKOCYTE ESTERASE NEGATIVE Leu/uL (NEGATIVE); URINE PROTEIN NEGATIVE mg/dL (<30 mg/dL)
[2018-02-10 16:33] LABS: ALB/GLOB RATIO 1.3 (1.1-1.8); ALBUMIN 4.4 g/dL (3.0-4.8); ALT/SGPT 33 U/L (7-56); AST/SGOT 29 U/L (17-59); BLOOD UREA NITROGEN 18 mg/dL (7-21); CALCIUM 9.7 mg/dL (8.4-10.5); GFR NON-AFRICAN AMERICAN > 60; LIPASE 68 U/L (23-300)
[2018-02-10 16:44] LABS: TROPONIN I < 0.01 ng/mL
[2018-02-10] MEDS ORDERED: Iodixanol 320 mg/ml 150 ml Bottle IV ONE (16:56)
--- NOTE | 2018-02-10 18:24 | CT ---
Date of service: 02/10/2018 PROCEDURE: CT Abdomen and Pelvis with contrast HISTORY: h/o gastric sleeve w/ periumbilical abdominal pain COMPARISON: None available TECHNIQUE: Contrast dose: 148 cc Visipaque IV Radiation dose: Total exam DLP = 1191.91 mGy-cm. This CT exam was performed using one or more of the following dose reduction techniques: Automated exposure control, adjustment of the mA and/or kV according to patient size, and/or use of iterative reconstruction technique. FINDINGS: Examination limited by motion/streak artifact. LOWER THORAX: No visible consolidation, pleural effusion, or pneumothorax. LIVER: Unremarkable. GALLBLADDER AND BILE DUCTS: Unremarkable. PANCREAS: Unremarkable. SPLEEN: Unremarkable. ADRENALS: Unremarkable. KIDNEYS AND URETERS: The kidneys enhance symmetrically. No hydronephrosis or obstructing calculus identified. VASCULATURE: Atherosclerotic calcifications. No aortic aneurysm. BOWEL: Stomach is nondistended. Postsurgical gastric changes with numerous metallic clips present. Lack of oral contrast limits evaluation for bowel pathology. Bowel loops appear within normal limits of caliber without evidence of obstruction. Mild constipation. APPENDIX: No secondary signs of acute appendicitis. PERITONEUM: No significant free fluid. No definite free air. LYMPH NODES: Unremarkable. BLADDER: Unremarkable. REPRODUCTIVE: The prostate gland measures approximately 3.6 x 5.7 cm. BONES: Degenerative changes. OTHER FINDINGS: Tiny fat containing umbilical hernia. IMPRESSION: Mild constipation. Enlarged prostate gland. Recommend correlation with PSA. Postsurgical changes of the stomach. Additional findings as above.
--- NOTE | 2018-02-10 20:25 | CARD ---
APPROVED REPORT Date of service: 02/10/2018 EKG Measurement Heart [id number] <Conclusion> Sinus bradycardia Otherwise normal ECG
[2018-02-10 21:55] VITALS: BP 142/70; PULSE 72; RESP 18; TEMP 98.2; O2SAT 99
== END 2018-02-10 18:10 | disposition home or self-care (01) ==
LOC: ED 14:22
DX: K29.70 Gastritis, unspecified, without bleeding (principal); K59.00 Constipation, unspecified; I10 Essential (primary) hypertension; E78.00 Pure hypercholesterolemia, unspecified; Z98.84 Bariatric surgery status; F17.210 Nicotine dependence, cigarettes, uncomplicated
CPT/HCPCS: 74177; 80053; 81003; 83690; 84484; 85025; 85651; 93005; 96374; 99284; J1885; J7030; Q9967

== ENCOUNTER 2018-03-28 13:47 | Emergency (ER) | payer MEDICAID ==
[2018-03-28 13:48] VITALS: BMI 31.4
[2018-03-28 14:04] VITALS: RESP 19; TEMP 98
--- NOTE | 2018-03-28 14:18 | ED PDOC ---
Arrival/HPI - General Chief Complaint: Trauma Time Seen by Provider: 03/28/18 13:52 Historian: Patient - History of Present Illness Narrative History of Present Illness (Text): 03/28/18 14:14 A 43 year old male, whose past medical history includes hypertension, substance abuse, presents to the emergency department complaining of "syncope". Per , she heard a loud sound and found patient on the floor. Prior to this, patient w as at baseline earlier. Patient here in the ER is awake and states he is uncertain what happened prior to syncopal episode. Patient denies any other complaints at this time. Also, patient mentions "overdosing" yesterday, and denies any EtOH/substance abuse today. No PMD Past Medical History - Provider Review Nursing Documentation Reviewed: Yes - Infectious Disease Hx of Infectious Diseases: None - Cardiac Hx Cardiac Disorders: Yes Hx Hypertension: Yes - Pulmonary Hx Respiratory Disorders: No - Neurological Hx Neurological Disorder: No - HEENT Hx HEENT Disorder: No - Renal Hx Renal Disorder: No - Endocrine/Metabolic Hx Endocrine Disorders: No - Hematological/Oncological Hx Blood Transfusions: No - Integumentary Hx Dermatological Disorder: No - Musculoskeletal/Rheumatological Hx Musculoskeletal Disorders: Yes - Gastrointestinal Hx Gastrointestinal Disorders: Yes Other/Comment: gastric sleeve. GI bleeding problem - Genitourinary/Gynecological Hx Genitourinary Disorders: No - Psychiatric Hx Anxiety: Yes Hx Substance Use: No - Surgical History Other/Comment: gastric sleeve - Anesthesia Hx Anesthesia: Yes Hx Anesthesia Reactions: No Hx Malignant Hyperthermia: No - Suicidal Assessment Feels Threatened In Home Enviroment: No Family/Social History - Physician Review Nursing Documentation Reviewed: Yes Family/Social History: No Known Family HX Smoking Status: Light Smoker < 10 Cigarettes Daily Hx Alcohol Use: No Hx Substance Use: No Allergies/Home Meds Allergies/Adverse Reactions: Allergies No Known Allergies Allergy (Verified 02/10/18 15:14) Review of Systems - Physician Review All systems were reviewed & negative as marked: Yes - Review of Systems Constitutional: absent: Fevers, Night Sweats Respiratory: absent: SOB Cardiovascular: Syncope ("syncope"). absent: Chest Pain Gastrointestinal: absent: Abdominal Pain, Diarrhea, Nausea, Vomiting Neurological: absent: Headache, Dizziness Physical Exam Vital Signs Reviewed: Yes Vital Signs Temp Pulse Resp BP Pulse Ox 03/28/18 13:51 98 F 64 19 158/86 H 98 Temperature: Afebrile Blood Pressure: Normal Pulse: Regular Respiratory Rate: Normal Appearance: Positive for: Well-Appearing, Non-Toxic, Comfortable Pain Distress: None Mental Status: Positive for: Alert and Oriented X 3 Finger Stick Blood Glucose: 69 - Systems Exam Head: Present: Atraumatic, Normocephalic Pupils: Present: PERRL Extroacular Muscles: Present: EOMI Conjunctiva: Present: Normal Mouth: Present: Moist Mucous Membranes Neck: Present: Normal Range of Motion Respiratory/Chest: Present: Clear to Auscultation, Good Air Exchange. No: Respiratory Distress, Accessory Muscle Use Cardiovascular: Present: Regular Rate and Rhythm, Normal S1, S2. No: Murmurs Abdomen: No: Tenderness, Distention, Peritoneal Signs Back: Present: Normal Inspection Upper Extremity: Present: Normal Inspection. No: Cyanosis, Edema Lower Extremity: Present: Normal Inspection. No: Edema Neurological: Present: GCS=15, CN II-XII Intact, Speech Normal Skin: Present: Warm, Dry, Normal Color. No: Rashes Psychiatric: Present: Alert, Oriented x 3, Normal Insight, Normal Concentration Medical Decision Making ED Course and Treatment: 03/28/18 14:17 Impression: 43 year old male with "syncope". Physical exam is benign. ro intrac ranil,metabolic tox, cardiac etiology Plan: -- EKG -- Head CT -- Chest X-ray -- Labs -- Urinalysis -- Reassess and disposition Prior Visits: Notes and results from previous visits were reviewed. Patient was last seen in the emergency department on 02/10/2018 for headache and abdominal discomfort. Patient was discharged home. Progress Notes: EKG: Ordered, reviewed, and independently interpreted the EKG. Rate : 71 BPM Rhythm : NSR Interpretation : No ST-segment elevations or depressions, no T-wave inversions, normal intervals. Comparison : No previous EKG for comparison. 03/28/2018 15:01 Chest X-ray IMPRESSION: No active disease. Dictator: Debo Hess MD 03/28/2018 15:[address] IMPRESSION: No acute intracranial abnormality. Dictator: Debo Hess MD 03/28/18 17:10 [place] kathrine syncope rules neg. pt well appearin gwatching tv in nad. labs neg. ct neg. advise outpt fu. 03/28/18 17:44 ekg no changes trop neg. cardiac syncope less likely. advise outpt fu. abd sof tno ttp neuro intact. - Lab Interpretations I have reviewed the lab results: Yes - RAD Interpretation Radiology Orders: 03/28/18 14:08 HEAD W/O CONTRAST [CT] Stat CHEST PORTABLE [RAD] Stat - Scribe Statement The provider has reviewed the documentation as recorded by the Melissaibsandra Mtz Provider Scribe Attestation: All medical record entries made by the Scribe were at my direction and personally dictated by me. I have reviewed the chart and agree that the record accurately reflects my personal performance of the history, physical exam, medical decision making, and the department course for this patient. I have also personally directed, reviewed, and agree with the discharge instructions and disposition. Disposition/Present on Arrival - Present on Arrival Any Indicators Present on Arrival: No History of DVT/PE: No History of Uncontrolled Diabetes: No Urinary Catheter: No History of Decub. Ulcer: No History Surgical Site Infection Following: None - Disposition Have Diagnosis and Disposition been Completed?: Yes Diagnosis: Syncope Disposition: HOME/ ROUTINE Disposition Time: 17:00 Condition: STABLE Discharge Instructions (ExitCare): Syncope (Fainting), Syncope (ED) Additional Instructions: return to er with worsneing symptoms or concerns. please follow up with your doctor/clinic. Referrals: [facility] [Outside] - Follow up with primary [facility] [place]] - Follow up with primary Wong Marquez MD [Staff Provider] - Follow up with primary Santosh Hernandes MD [Staff Provider] - Follow up with primary Forms: [employer] (Arabic)
[2018-03-28 14:52] LABS: BASO # 0.02 K/mm3 (0.0-2.0); BASO % 0.3 % (0.0-3.0); EOS # 0.2 (0.0-0.7); EOS % 2.7 % (1.5-5.0); GRAN # 3.47 (1.4-6.5); GRAN % 56.1 % (50.0-68.0); HEMOGLOBIN 15.2 g/dL (14.0-18.0); MEAN CELL VOLUME 78.8 fl (80.0-105.0); MEAN CORPUSCULAR HEMOGLOBIN 26.9 pg (25.0-35.0); MEAN CORPUSCULAR HGB CONC 34.1 g/dl (31.0-37.0); MEAN PLATELET VOLUME 9.7 fl (7.0-11.0); MONO # 0.5 (0.1-0.6); MONO % 7.9 % (1.0-6.0); RBC 5.66 10^6/uL (3.5-6.1); RED CELL DISTRIBUTION WIDTH 14.2 % (11.5-14.5); WHITE BLOOD COUNT 6.2 10^3/uL (4.5-11.0)
--- NOTE | 2018-03-28 15:05 | RAD ---
Date of service: 03/28/2018 HISTORY: syncope COMPARISON: No prior. FINDINGS: LUNGS: The lungs are well inflated and clear. PLEURA: No pleural effusions or pneumothorax. CARDIOVASCULAR: The heart is normal in size. No aortic atherosclerotic calcification present. OSSEOUS STRUCTURES: Within normal limits for the patient's age. VISUALIZED UPPER ABDOMEN: Normal. OTHER FINDINGS: None. IMPRESSION: No active pulmonary disease.
[2018-03-28 15:06] LABS: ACETAMINOPHEN < 10.0 ug/ml (10.0-20.0); ALB/GLOB RATIO 1.1 (1.1-1.8); ALT/SGPT 38 U/L (7-56); AST/SGOT 36 U/L (17-59); BLOOD UREA NITROGEN 19 mg/dL (7-21); CALCIUM 9.3 mg/dL (8.4-10.5); GFR NON-AFRICAN AMERICAN > 60; SALICYLATE < 1 mg/dL (2.0-20.0)
--- NOTE | 2018-03-28 15:08 | CT ---
Date of service: 03/28/2018 PROCEDURE: CT HEAD WITHOUT CONTRAST. HISTORY: syncope COMPARISON: None available. TECHNIQUE: Axial computed tomography images were obtained through the head/brain without intravenous contrast. Radiation dose: Total exam DLP = 936.35 mGy-cm. This CT exam was performed using one or more of the following dose reduction techniques: Automated exposure control, adjustment of the mA and/or kV according to patient size, and/or use of iterative reconstruction technique. FINDINGS: HEMORRHAGE: No intracranial hemorrhage. BRAIN: Ridley-white matter differentiation is preserved. There is no mass, mass effect or abnormal extra-axial fluid collection. There is no territorial infarction. The midline sagittal structures are normal. VENTRICLES: The ventricles are normal in size, shape and configuration. CALVARIUM: There is no calvarial fracture or extracranial soft tissue swelling. PARANASAL SINUSES: There is mild mucoperiosteal thickening in the ethmoid air cells and left sphenoid chamber. The remaining included paranasal sinuses are clear. MASTOID AIR CELLS: Predominantly clear. OTHER FINDINGS: None. IMPRESSION: No acute intracranial abnormality.
[2018-03-28 15:17] LABS: TROPONIN I < 0.01 ng/mL
[2018-03-28] MEDS ORDERED: Sodium Chloride 0.9% 1,000 ML IV STA (15:22)
[2018-03-28 16:14] LABS: URINE BILIRUBIN NEGATIVE (NEGATIVE); URINE BLOOD NEGATIVE (NEGATIVE); URINE GLUCOSE (UA) NEGATIVE (NEGATIVE); URINE LEUKOCYTE ESTERASE TRACE Leu/uL (NEGATIVE); URINE PROTEIN TRACE mg/dL (<30 mg/dL)
[2018-03-28 16:16] LABS: URINE APPEARANCE CLEAR (CLEAR); URINE COLOR YELLOW (YELLOW)
[2018-03-28 16:22] LABS: INR 1.02; PARTIAL THROMBOPLASTIN TIME 31.6 Seconds (25.1-36.5); PROTHROMBIN TIME 11.6 SECONDS (9.4-12.5)
[2018-03-28 16:34] LABS: URINE AMORPHOUS SEDIMENT SMALL; URINE BACTERIA TRACE (NEG); URINE RBC NEGATIVE /hpf (0-2); URINE WBC 0 - 2 /hpf (0-6)
[2018-03-28 16:40] LABS: OPIATES, UR NEGATIVE (NEGATIVE)
[2018-03-28 16:48] LABS: BARBITURATES, UR NEGATIVE (NEGATIVE); BENZODIAZEPINES, UR POSITIVE (NEGATIVE); PHENCYCLIDINE, UR NEGATIVE (NEGATIVE)
[2018-03-28 17:06] VITALS: BP 124/53; PULSE 85; O2SAT 99
--- NOTE | 2018-03-29 09:41 | CARD ---
APPROVED REPORT Date of service: 03/28/2018 EKG Measurement Heart [id number] <Conclusion> Normal sinus rhythm Normal ECG No change
== END 2018-03-28 17:06 | disposition home or self-care (01) ==
LOC: ED 13:47
DX: R55 Syncope and collapse (principal); I10 Essential (primary) hypertension; F41.9 Anxiety disorder, unspecified; F17.210 Nicotine dependence, cigarettes, uncomplicated
CPT/HCPCS: 70450; 71045; 80053; 80320; 80324; 80329; 80345; 80346; 80349; 80353; 80358; 80361; 81001; 82550; 83615; 83735; 83992; 84484; 85025; 85610; 85730; 87086; 93005; 96361; 96374; 99285; J1885; J7030

== ENCOUNTER 2018-08-17 08:20 | Emergency (ER) | payer MEDICAID ==
[2018-08-17 08:20] VITALS: BMI 31.4
[2018-08-17 08:33] VITALS: BP 126/88; PULSE 82; RESP 18; TEMP 98.3; O2SAT 99
--- NOTE | 2018-08-17 09:08 | ED PDOC ---
Arrival/HPI - General Chief Complaint: Back Pain Time Seen by Provider: 08/17/18 08:36 Historian: Patient - History of Present Illness Narrative History of Present Illness (Text): 08/17/18 09:03 43 year old M with a pmh of chronic back pain, hypertension and substance abuse presents to the emergency department complaining of thoracic back pain and left lower back pain radiating to the left anterior thigh. 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 Patient denies weakness to extremities or any fevers, chills, headache, dizziness, chest pain, shortness of breath, dyspnea on exertion, cough, abdominal pain, nausea, vomiting, diarrhea, neck pain, or any other complaint. Time/Duration: > week Symptom Course: Unchanged Activities at Onset: Light Context: Home Associated Symptoms (Text): 08/17/18 09:44 History of chronic low back pain. 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 Complains of left low back and left thoracic back pain for the last several days. Radiates to anterior left thigh. No abdominal pain nausea vomiting or diarrhea. No dysuria frequency urgency or hematuria. No numbness tingling or paresthesias. He is currently unemployed. He denies any injury or trauma. Past Medical History - Provider Review Nursing Documentation Reviewed: Yes - Infectious Disease Hx of Infectious Diseases: None - Cardiac Hx Cardiac Disorders: Yes Hx Hypertension: Yes - Pulmonary Hx Respiratory Disorders: No - Neurological Hx Neurological Disorder: No - HEENT Hx HEENT Disorder: No - Renal Hx Renal Disorder: No - Endocrine/Metabolic Hx Endocrine Disorders: No - Hematological/Oncological Hx Blood Transfusions: No - Integumentary Hx Dermatological Disorder: No - Musculoskeletal/Rheumatological Hx Musculoskeletal Disorders: Yes - Gastrointestinal Hx Gastrointestinal Disorders: Yes Other/Comment: gastric sleeve. GI bleeding problem - Genitourinary/Gynecological Hx Genitourinary Disorders: No - Psychiatric Hx Anxiety: Yes Hx Substance Use: No - Surgical History Other/Comment: gastric sleeve - Anesthesia Hx Anesthesia: Yes Hx Anesthesia Reactions: No Hx Malignant Hyperthermia: No - Suicidal Assessment Feels Threatened In Home Enviroment: No Family/Social History - Physician Review Nursing Documentation Reviewed: Yes Family/Social History: No Known Family HX Smoking Status: Light Smoker < 10 Cigarettes Daily Hx Alcohol Use: No Hx Substance Use: No Allergies/Home Meds Allergies/Adverse Reactions: Allergies No Known Allergies Allergy (Verified 02/10/18 15:14) Review of Systems - Physician Review All systems were reviewed & negative as marked: Yes - Review of Systems Constitutional: absent: Fatigue, Fevers ENT: absent: Sore Throat, Rhinorrhea Respiratory: absent: SOB, Cough, Wheezing Cardiovascular: absent: Chest Pain, Edema Gastrointestinal: absent: Abdominal Pain, Diarrhea, Nausea, Vomiting Musculoskeletal: Back Pain (lower left radiating to left interior thigh). absent: Neck Pain Neurological: absent: Headache, Dizziness Physical Exam Vital Signs Reviewed: Yes Vital Signs Temp Pulse Resp BP Pulse Ox 08/17/18 08:30 98.3 F 82 18 126/88 99 Temperature: Afebrile Blood Pressure: Normal Pulse: Regular Respiratory Rate: Normal Appearance: Positive for: Well-Appearing, Non-Toxic, Uncomfortable Pain Distress: Mild Mental Status: Positive for: Alert and Oriented X 3 - Systems Exam Head: Present: Atraumatic, Normocephalic Pupils: Present: PERRL Extroacular Muscles: Present: EOMI Conjunctiva: Present: Normal Mouth: Present: Moist Mucous Membranes Neck: Present: Normal Range of Motion Respiratory/Chest: Present: Clear to Auscultation, Good Air Exchange. No: Respiratory Distress, Accessory Muscle Use Cardiovascular: Present: Regular Rate and Rhythm, Normal S1, S2. No: Murmurs Abdomen: No: Tenderness, Distention, Peritoneal Signs, Rebound, Guarding Back: Present: Normal Inspection, Paraspinal Tenderness, Other (Mild tenderness and spasms on left lumbar and thoracic area). No: CVA Tenderness, Midline Tenderness, Pain with Leg Raise Upper Extremity: Present: Normal Inspection. No: Cyanosis, Edema Lower Extremity: Present: Normal Inspection. No: Edema Neurological: Present: GCS=15, CN II-XII Intact, Speech Normal, Motor Func Grossly Intact, Normal Sensory Function, Normal Cerebellar Funct, Gait Normal Skin: Present: Warm, Dry, Normal Color. No: Rashes Psychiatric: Present: Alert, Oriented x 3, Normal Insight, Normal Concentration Medical Decision Making ED Course and Treatment: 08/17/18 09:12 Impression: 43 year old M presents to the emergency department complaining thoracic back pain and left lower back pain radiating to the left interior thigh. Plan: --Toradol --Thoracic Spine XR --Lumbar Spine XR -- Reassess and disposition Prior Visits: Notes and results from previous visits were reviewed. Progress Notes: 08/17/18 12:56 Pain improved post Toradol. - RAD Interpretation Radiology Orders: 08/17/18 08:50 LS SPINE WITH OBL > 18 YRS OLD [RAD] Stat 08/17/18 08:51 DORSAL (THORACIC) SPINE [RAD] Stat Lumbar spine shows no fracture or dislocation. Thoracic spine shows no fracture or dislocation. Real Estate Administrative Assistant: ED Physician - Medication Orders Current Medication Orders: Discontinued Medications Ketorolac Tromethamine (Toradol) 60 mg IM ONCE ONE Stop: 08/17/18 08:51 - PA / COMMUNITY SPECIALIST / Resident Statement MD/DO has reviewed & agrees with the documentation as recorded. - Scribe Statement The provider has reviewed the documentation as recorded by the Yossi Ernandez All medical record entries made by the Melissaibsandra were at my direction and personally dictated by me. I have reviewed the chart and agree that the record accurately reflects my personal performance of the history, physical exam, medical decision making, and the department course for this patient. I have also personally directed, reviewed, and agree with the discharge instructions and disposition. Disposition/Present on Arrival - Present on Arrival Any Indicators Present on Arrival: No History of DVT/PE: No History of Uncontrolled Diabetes: No Urinary Catheter: No History of Decub. Ulcer: No History Surgical Site Infection Following: None - Disposition Have Diagnosis and Disposition been Completed?: Yes Diagnosis: Low back pain, Back pain Disposition: HOME/ ROUTINE Disposition Time: 10:05 Patient Plan: Discharge Condition: GOOD Discharge Instructions (ExitCare): Chronic Pain (DC), Low Back Pain (DC) Additional Instructions: Rest and moist heat. Follow-up with PMD. Follow-up in ER as needed. Prescriptions: Cyclobenzaprine [Flexeril] 5 mg PO Q8 #15 tab Naproxen [Naprosyn] 500 mg PO BID #14 tab Tramadol HCl [Ultram] 50 mg PO Q6 PRN #15 tab PRN Reason: Pain Referrals: Brett Kim MD [Primary Care Provider] - Follow up with primary Forms: [employer] (Zimbabwean)
--- NOTE | 2018-08-17 10:32 | RAD ---
Date of service: 08/17/2018 PROCEDURE: Radiographs of the Lumbar Spine. HISTORY: pain COMPARISON: No prior. FINDINGS: BONES: Normal alignment. No listhesis. No fracture. DISC SPACES: Unremarkable. OTHER FINDINGS: None. IMPRESSION: Unremarkable radiographs of the lumbar spine.
--- NOTE | 2018-08-17 10:32 | RAD ---
Date of service: 08/17/2018 HISTORY: pain COMPARISON: No prior. FINDINGS: BONES: Alignment maintained. No fracture. DISC SPACES: Normal. SOFT TISSUES: Normal. OTHER FINDINGS: None. IMPRESSION: Normal radiographs of the thoracic spine.
== END 2018-08-17 10:30 | disposition home or self-care (01) ==
LOC: ED 08:20
DX: M54.5 Low back pain (principal); M54.6 Pain in thoracic spine
CPT/HCPCS: 72070; 72110; 96372; 99282; J1885

== ENCOUNTER 2018-10-18 13:40 | Emergency (ER) | payer MEDICAID, OTHER ==
[2018-10-18 13:57] VITALS: BP 128/99; PULSE 79; RESP 18; TEMP 97.8; O2SAT 96
[2018-10-18 13:58] VITALS: BMI 29.5
--- NOTE | 2018-10-18 14:17 | ED PDOC ---
Arrival/HPI - General Chief Complaint: Lower Extremity Problem/Injury Time Seen by Provider: 10/18/18 13:46 Historian: Patient - History of Present Illness Narrative History of Present Illness (Text): 10/18/18 14:19 A 43 year old male, whose past medical history includes chronic back pain, gastric bypass surgery (2016), hypertension and substance abuse, presents to the ED complaining of left knee pain and swelling for the past 3 days. Patient denies any trauma/injury, fevers, chills, headache, dizziness, chest pain, shortness of breath, dyspnea on exertion, cough, abdominal pain, nausea, vomiting, diarrhea, neck pain, urinary/bowel changes, or any other complaints. Time/Duration: < week Symptom Onset: Gradual Symptom Course: Unchanged Activities at Onset: Light Context: Home Past Medical History - Provider Review Nursing Documentation Reviewed: Yes - Infectious Disease Hx of Infectious Diseases: None - Cardiac Hx Cardiac Disorders: Yes Hx Hypertension: Yes - Pulmonary Hx Respiratory Disorders: No - Neurological Hx Neurological Disorder: No - HEENT Hx HEENT Disorder: No - Renal Hx Renal Disorder: No - Endocrine/Metabolic Hx Endocrine Disorders: No - Hematological/Oncological Hx Blood Transfusions: No - Integumentary Hx Dermatological Disorder: No - Musculoskeletal/Rheumatological Hx Musculoskeletal Disorders: Yes - Gastrointestinal Hx Gastrointestinal Disorders: Yes Other/Comment: gastric sleeve. GI bleeding problem - Genitourinary/Gynecological Hx Genitourinary Disorders: No - Psychiatric Hx Anxiety: Yes Hx Substance Use: No - Surgical History Other/Comment: gastric sleeve - Anesthesia Hx Anesthesia: Yes Hx Anesthesia Reactions: No Hx Malignant Hyperthermia: No - Suicidal Assessment Feels Threatened In Home Enviroment: No Family/Social History - Physician Review Nursing Documentation Reviewed: Yes Family/Social History: No Known Family HX Smoking Status: Light Smoker < 10 Cigarettes Daily Hx Alcohol Use: No Hx Substance Use: No Allergies/Home Meds Allergies/Adverse Reactions: Allergies No Known Allergies Allergy (Verified 10/18/18 13:57) Review of Systems - Physician Review All systems were reviewed & negative as marked: Yes - Review of Systems Respiratory: absent: SOB Cardiovascular: absent: Chest Pain Physical Exam - Physical Exam Narrative Physical Exam (Text): 10/18/18 14:21 Constitutional: No acute distress. Head: Normocephalic. Atraumatic. Eyes: PERRL. ENT: Moist mucous membranes. Neck: Supple. Cardiovascular: Regular rate. Chest: No tenderness. Respiratory: Clear to auscultation bilaterally. GI: Soft. Nontender. Nondistended. Back: No CVA tenderness. Musculoskeletal: Knee edema. No calf tenderness or swelling. FROM. Sensations intact. Skin: No rash. Neurologic: Alert, no focal deficit. Vital Signs Reviewed: Yes Vital Signs Temp Pulse Resp BP Pulse Ox 10/18/18 13:56 97.8 F 79 18 128/99 H 96 Temperature: Afebrile Blood Pressure: Normal Pulse: Regular Respiratory Rate: Normal Appearance: Positive for: Well-Appearing, Non-Toxic, Comfortable Pain Distress: Mild Mental Status: Positive for: Alert and Oriented X 3 Medical Decision Making ED Course and Treatment: 10/18/18 14:25 Impression: A 43 year old male who presents to the ED complaining of left knee pain and swelling. Plan: -- XR, SIDDHARTH wrap, crutches, pain control, f/u PMD, possible MRI in future. Patient refused XR and crutches and pain control. SIDDHARTH wrap applied. Instructed t o return to Emergency department for worsening pain, fever, inability to range. - Scribe Statement The provider has reviewed the documentation as recorded by the Yossi Romeo Provider Scribe Attestation: All medical record entries made by the Scribe were at my direction and personally dictated by me. I have reviewed the chart and agree that the record accurately reflects my personal performance of the history, physical exam, medical decision making, and the department course for this patient. I have also personally directed, reviewed, and agree with the discharge instructions and disposition. Disposition/Present on Arrival - Present on Arrival Any Indicators Present on Arrival: No History of DVT/PE: No History of Uncontrolled Diabetes: No Urinary Catheter: No History of Decub. Ulcer: No History Surgical Site Infection Following: None - Disposition Have Diagnosis and Disposition been Completed?: Yes Diagnosis: Knee pain Disposition: HOME/ ROUTINE Disposition Time: 14:16 Patient Plan: Discharge Condition: GOOD Discharge Instructions (ExitCare): Knee Pain (DC) Referrals: Brett Kim MD [Primary Care Provider] - Follow up with primary Forms: [employer] (Bahamian)
== END 2018-10-18 14:33 | disposition home or self-care (01) ==
LOC: ED 13:40
DX: M25.562 Pain in left knee (principal); F17.210 Nicotine dependence, cigarettes, uncomplicated; I10 Essential (primary) hypertension; Z98.84 Bariatric surgery status